=== PATIENT | female | born 1970 | race Caucasian/White ===

== ENCOUNTER 2017-12-19 15:16 | Outpatient (REF) | payer BC, SELFPAY ==
[2017-12-19 19:28] LABS: Bacteria Many HPF (Negative); Casts Negative LPF (Negative); Crystals Many Amorphous HPF (Negative); Epithelial Cells Many HPF (Negative); Mucus Negative (Negative); Other Cells Negative (Negative); RBC Negative (0-2); WBC Negative HPF (0-5)
[2017-12-19 19:29] LABS: C & S Indicated? C&S Done As Ordered
== END 2017-12-19 15:36 ==
LOC: NCHCN 15:16
PROVIDERS: PCP Internal Medicine; Visit Provider Physician Assistant Medical
DX: N39.0 Urinary tract infection, site not specified (principal)
CPT/HCPCS: 81015; 87086

== ENCOUNTER 2018-05-19 14:12 | Outpatient (CLI) | payer BC, SELFPAY ==
[2018-05-19 11:06] LABS: HCT 43.9 % (36.0-46.0); HGB 14.4 g/dL (12.0-15.5); Mean Corp. HGB Concentration 32.8 g/dL (32.0-36.0); Mean Corpuscular Hemoglobin 27.7 pg (27.0-33.0); Mean Corpuscular Volume 84.4 fL (80-95); Mean Platelet Volume 9.3 fL (8.0-11.0); Platelet Count 324 x1000/uL (130-400); RBC Distribution Width 13.3 % (11.7-14.6)
[2018-05-19 11:46] LABS: HCG Qual (Serum) Negative
[2018-05-19 11:55] LABS: ALT 36 U/L (12-78); AST 17 U/L (15-37); Albumin 3.6 g/dL (3.4-5.0); Alkaline Phosphatase 52 U/L (46-116); Anion Gap 9.3 mmol/L (3-11); BUN 12 mg/dL (7-18); Bilirubin, Total 0.3 mg/dL (0.2-1.0); CO2 27.7 mmol/L (21.0-32.0); CREATININE 0.69 mg/dL (0.55-1.02); Calcium 9.2 mg/dL (8.5-10.1); Chloride 99 mmol/L (98-107); Glucose 225 mg/dL (70-100); Potassium 4.2 mmol/L (3.5-5.1); Sodium 136 mmol/L (136-145); Total Protein 7.6 g/dL (6.4-8.2)
== END 2018-05-19 14:32 ==
PROVIDERS: PCP Internal Medicine; Visit Provider Obstetrics & Gynecology Gynecology
DX: N92.0 Excessive and frequent menstruation with regular cycle (principal); N94.6 Dysmenorrhea, unspecified; Z01.818 Encounter for other preprocedural examination
CPT/HCPCS: 36415; 80053; 85027; 86850; 86900; 86901; 84703

== ENCOUNTER 2018-05-20 11:51 | Observation (INO) | payer BC, SELFPAY ==
[2018-05-19 10:09] VITALS: BP 143/81; PULSE 90; RESP 18; TEMP 37.2; O2SAT 98
[2018-05-20] VITALS (14 sets, daily range): BP systolic 101–140; BP diastolic 32–79; PULSE 75–105; RESP 12–22; TEMP 36.1–37; O2SAT 93–98
[2018-05-20] MEDS: Lactated Ringers 1,000 ML 125 ML IV ×5 (08:25→23:52)
--- NOTE | 2018-05-20 10:20 | UTER_PTH ---
PATIENT: Charla Pastrana LOC: OBS U#:[id number] AGE/SX: 47/F ROOM: OBS.305 RE05/20/[address]: Hellen Torres : 1970 BED: A DIS: 05/21/2018 SPEC #: [id number] RECD: 05/20/18 12:46 STATUS: SALVATORE REQ #: [id number] PACO: 05/20/18 10:[address]: Hellen Torres DEPT: Surgical Specimen RECD BY: Rosi Linn ENTERED: 05/20/18 12:47 SP TYPE: UTER OTHR DR: David Preciado Tissues: 1 - UTERUS W OR W/O OVARIES(NOT TUMOR/PROLAPSE) 2 - FALLOPIAN TUBE (OTHER) 3 - FALLOPIAN TUBE (OTHER) Procedures: GROSS AND MICRO LEVEL 5 Comments: [id number]
--- NOTE | 2018-05-20 16:42 | ROE_ITS ---
Date of service: 05/20/18 Time of Service: 16:39 Operative Note DATE OF PROCEDURE: 05/20/18 PRE-OP DIAGNOSIS: Abnormal uterine bleeding POST-OP DIAGNOSIS: same PROCEDURE: Vaginal hysterectomy with bilateral salpingectomy and bladder cystoscopy SURGEON: Hellen Torres ASSISTING SURGEON: Solange Brooks ANESTHESIA: RAH ESTIMATED BLOOD LOSS: 300 PATHOLOGY: other (Uterus cervix and bilateral fallopian tubes) COMPLICATIONS: None Patient was transported to: PACU Patient's condition: stable Indications: Abnormal uterine bleeding not responsive to endometrial ablation or hormonal therapy. Patient has decided to have definitive treatment in the form of a vaginal hysterectomy with risk reducing bilateral salpingectomy. Findings: Cervix, uterus and fallopian tubes normal. Normal ovaries bilaterally. Procedure Description: Patient was taken to the OR and placed in the dorsal supine position and general endotracheal anesthesia was administered without difficulty. She was then placed in the dorsal lithotomy position in yellowfin stirrups, prepped and draped in the usual sterile fashion. Cabrera catheter was placed to gravity drainage remains in place for the entire case. A weighted speculum was placed into the vagina and cervix grasped with a single-tooth tenaculum and the body of the cervix infiltrated with 1% lidocaine with epinephrine in a circumferential fashion. Bovie was used to incise the epithelium of the cervix circumferentially allowing access to the posterior cul-de-sac which was then entered sharply and through the incision a long billed weighted speculum was placed. Curved Martha clamp was placed on the left uterosacral ligament and the ligament cut, and the ends sutured ligated with 0 Vicryl and the suture held long. A similar technique was carried out on the contralateral uterosacral ligament. This allowed sufficient mobilization of the uterus so that we were able to dissect the bladder off of the pubovesical cervical fascia anteriorly with a moistened laparotomy sponge and enter the anterior cul-de-sac sharply. And place a Montgomery retractor into the incision to retract the bladder away from the operative field. The uterine arteries and the broad ligament were then serially clamped with Martha clamps transected and suture ligated bilaterally both cornua were clamped with Martha clamps transected and the uterus was delivered. The cornua pedicles were ligated with a free tie followed by a suture ligature of 0 Vicryl with excellent hemostasis noted. After careful inspection of the uterosacral and cornual pedicles the right fallopian tube was identified followed to its proximal and close to the right ovary clamped transected and the pedicle suture ligated. A similar technique was carried out on the contralateral fallopian tube. Once again both pedicles were noted be hemostatic. Suture of 0 Vicryl was placed through the posterior vaginal cuff and then the medial surface of the right uterosacral ligament then relieved along peritoneum overlying the anterior surface of the rectum and then again to the left uterosacral ligament and exiting the posterior vaginal cuff. The suture was held long. After final inspection of pedicles which were noted to be noted to be hemostatic the vaginal cuff was reapproximated with a series of interrupted sutures of 0 Vicryl in a vertical placed in a vertical fashion. Once the cuff was reapproximated the 0 Vicryl suture of the posterior vaginal wall was tied and the posterior vaginal cuff was elevated to the vagina. The vaginal cuff was inspected and noted to be hemostatic. Bladder cystoscopy was performed using a 70 degree cystoscope both tubal ostia were visualized and noted to have brisk reflux of clear urine. The wall of the bladder was intact and normal in appearance. Cabrera catheter was reinserted to gravity drainage instruments removed from the patient's vagina which was placed in the dorsal supine position awakened extubated and transferred to recovery in stable condition all sponge lap needle counts correct x2 she received 2 g of Ancef prior to surgery. SCDs were placed throughout the entire case.
[2018-05-20] MEDS: Ketorolac 30 MG/ML VIAL IVP ×2 (18:03→23:51)
[2018-05-20] MEDS: Docusate Sodium 100 MG CAP PO (20:01)
[2018-05-20] MEDS: Acetaminophen 325 MG TAB 650 MG PO (21:55)
[2018-05-21 00:04] VITALS: BP 124/71; PULSE 96; RESP 18; TEMP 36.9; O2SAT 96
[2018-05-21 04:14] VITALS: BP 112/58; PULSE 94; RESP 20; TEMP 36.9; O2SAT 95
[2018-05-21] MEDS: Acetaminophen 325 MG TAB 650 MG PO ×2 (04:35→10:05)
[2018-05-21] MEDS: Ketorolac 30 MG/ML VIAL IVP (06:30)
[2018-05-21] MEDS: Docusate Sodium 100 MG CAP PO (07:39)
[2018-05-21 07:40] VITALS: BP 118/73; PULSE 83; RESP 20; TEMP 36.7; O2SAT 95
[2018-05-21 07:53] LABS: HCT 37.4 % (36.0-46.0); HGB 12.2 g/dL (12.0-15.5); Mean Corp. HGB Concentration 32.6 g/dL (32.0-36.0); Mean Platelet Volume 9.5 fL (8.0-11.0); Platelet Count 300 x1000/uL (130-400); RBC 4.35 m/cumm (4.00-5.20); RBC Distribution Width 13.4 % (11.7-14.6); White Blood Cell Count 12.14 k/cumm (4.4-10.8)
--- NOTE | 2018-05-21 07:59 | DSE_ITS ---
Date of service: 05/21/18 Time of Service: 07:44 DS: Diagnosis Discharge Diagnosis (1) Menorrhagia: Status: Resolved Asessment and Plan: History of abnormal uterine bleeding not responsive to medical therapy or endometrial ablation. (2) S/P vaginal hysterectomy: Start date: 05/20/18 Status: Acute Asessment and Plan: With bilateral risk reduction salpingectomy. Discharge Plan Disposition Patient Disposition: HOME Condition: Fair Discharge Details Admit Date/Time: 05/20/18 11:51 Admit Provider: Hellen Torres Attending Provider: Hellen Torres Primary Care Provider: [facility] Course Hospital Course: Patient was admitted the morning of the surgery and underwent the above-stated procedure approximate blood loss 300 cc. Findings at the time of surgery normal uterus and bilateral adnexa postop course was uncomplicated she was discharged home on postop day #1 with nonsteroidal anti-inflammatories and Tylenol for pain control. She is able to ambulate without difficulty and void after Cabrera catheter was removed. Home Meds and New Rx's Prescriptions: No Action oxycodone 5 mg tablet 5 mg PO DAILY MDD 4 PRN (Reason: pain) Qty: 5 RF: 0 lisinopril 10 MG tablet 10 mg PO DAILY RF: 0 norethindrone acetate 5 mg tablet 5 mg PO BID Qty: 60 RF: 1 diphenhydramine HCl 25 mg Tablet 25 mg PO DAILY RF: 0 ibuprofen 600 mg Tablet 600 mg PO PRN PRNRF: 0 Discharge Instructions Stand Alone Forms: DSU Post Gynecology Surgery Activity:: Activity as Tolerated Equipment/Supplies:: No Equipment Needed Diet:: As Tolerated Discharge Orders Discharge Orders: Discharge Order (Routine); Ordered 05/21/18 Ordered By: Hellen Torres Exam Narrative Exam Narrative: Unremarkable evening POD 0. She was ambulatory to the toilet and around the unit after her Cabrera catheter was removed. Nonsteroidal anti-inflammatories and acetaminophen were requested by patient and resulted in satisfactory pain control. Patient requested a prescription for narcotic she home in the event of increased postop pain shortly after arriving home. At the time of discharge she was passing flatus and had not had a bowel movement. Appetite was decreased w/o complaints of nausea or vomiting. Const General: comfortable and no acute distress Nutritional Appearance: overweight Orientation: alert, awake and oriented x3 Resp Effort & Inspection: normal respiratory effort and able to speak in complete sentences Auscultation: clear to auscultation bilaterally Cardio Rate: regular rate Heart Sounds: S1 normal and S2 normal GI Inspection: normal to inspection Palpation: soft and no hepatosplenomegaly General: deferred Skin General skin exam: no rashes or lesions noted Extrem General: normal to inspection, full ROM and normal capillary refill DS: Data Vitals/I&O Vitals and I&O: Vital Signs Temperature 98.4 F 05/21/18 04:14 Temperature Source Oral 05/21/18 04:14 Pulse 94 H 05/21/18 04:14 Pulse Rhythm Regular 05/20/18 19:25 Respiratory Rate 20 05/21/18 04:14 Respiratory Effort Non-Labored 05/20/18 19:25 Respiratory Depth Normal 05/20/18 19:25 Respiratory Pattern Normal 05/20/18 19:25 Blood Pressure 112/58 L 05/21/18 04:14 Pulse Oximetry 95 05/21/18 04:14 Respiratory End-tidal CO2 35 05/20/18 12:50 Oxygen Delivery Method Room Air 05/21/18 04:14 Oxygen Flow Rate 0 05/21/18 04:14 Pain Level 1 05/21/18 06:30 Intake & Output 05/20/18 05/20/18 05/21/18 11:59 23:59 11:59 Intake Total 1716.667 / 3050.000 1333.333 / 3050.000 1400 / 1400 Output Total 325 / 2225 1500 / 2225 750 / 750 Balance 1391.667 / 825.000 -166.667 / 825.000 650 / 650 Weight 236 lb 15.951 oz Intake: IV 1716.667 / 3050.000 1333.333 / 3050.000 1000 / 1000 Oral 400 / 400 Output: Urine 25 / 1925 1500 / 1925 750 / 750 Estimated Blood Loss 300 / 300 Other: Urine Color Dark Luci Yellow Yellow Urine Appearance Cloudy Clear Clear Urine Odor None None Comment Vaginal blood present in urine. Emesis Description None None Voiding Methods Toilet Toilet Labs on day of discharge: Labs from last 24 hours 05/21/18 05:35 WBC Pending RBC Pending Hgb Pending Hct Pending MCV Pending MCH Pending MCHC Pending RDW Pending Plt Count Pending MPV Pending PFSH Medical History Elevated glucose (Chronic) Menorrhagia (Resolved 10/12/15) Irregular menses (Resolved 10/12/15) Abnormal uterine bleeding (AUB) (Acute) Surgical History S/P vaginal hysterectomy (Acute) H/O parathyroidectomy (Acute) S/P excision of lipoma (Acute) Family History Father Esophageal cancer Social History household members: spouse marital status: M-Ismael, real estate sales supervisor number of children: 2 current occupation: fire fighters dispatcher Smoking and Tabacco status: Never additional social history: Children: Agusto Clarke Female Reproductive History Menstrual Duration of menses: >10 days History History 2 Para Hx # Term Pregnancies Multiple births Hx # Pregnancies Ectopic pregnancies AB induced Hx Number of Living Children AB spontaneous
[2018-05-21] MEDS: Ibuprofen 600 MG TAB PO (10:04)
== END 2018-05-21 10:15 | disposition home or self-care (01) ==
LOC: OBS 05-21 07:51
PROVIDERS: Admitting Provider Obstetrics & Gynecology Gynecology; PCP Internal Medicine; Visit Provider Obstetrics & Gynecology Gynecology
PROC: 0UT97ZZ Resection of Uterus, Via Natural or Artificial Opening (ICD-10-PCS; CPT 58260; principal; 2018-05-20 07:30)
DX: N92.1 Excessive and frequent menstruation with irregular cycle (principal); Z90.710 Acquired absence of both cervix and uterus; D25.0 Submucous leiomyoma of uterus; D25.2 Subserosal leiomyoma of uterus; N87.9 Dysplasia of cervix uteri, unspecified; N72 Inflammatory disease of cervix uteri; I10 Essential (primary) hypertension; K21.9 Gastro-esophageal reflux disease without esophagitis; E03.9 Hypothyroidism, unspecified
CPT/HCPCS: 58262; 52000; 36415; 85027; 99238; 88307; J0690; J1100; J1885; J2250; J2405; J3010

== ENCOUNTER 2020-05-11 17:58 | Outpatient (REF) | payer BC, SELFPAY | END 2020-05-11 17:59 | disposition home or self-care (01) | LOC: LBN 17:58 | PROVIDERS: PCP Internal Medicine; Visit Provider Advanced Practice Midwife | DX: L29.2 Pruritus vulvae (principal); R30.0 Dysuria | CPT/HCPCS: 87086; 87480; 87510; 87660 ==

== ENCOUNTER 2021-08-02 18:21 | Outpatient (REF) | payer BC, SELFPAY ==
[2021-08-02 18:15] LABS: Chloride 105 mmol/L (98-107); Potassium 4.3 mmol/L (3.5-5.1); Sodium 141 mmol/L (136-145)
[2021-08-02 18:32] LABS: COMMENT (LAB VIEW ONLY) 103.66 mg/dL; Microalb ug/mg Crea 9.3 ug/mg Cr
[2021-08-02 18:40] LABS: ALT 33 U/L (14-59); AST 14 U/L (15-37); Albumin 3.6 g/dL (3.4-5.0); Alkaline Phosphatase 71 U/L (46-116); BUN 14 mg/dL (7-18); Bilirubin, Total 0.3 mg/dL (0.2-1.0); CREATININE 0.7 mg/dL (0.55-1.02); Calcium 8.3 mg/dL (8.5-10.1); Calculated LDL 123 mg/dL (<100); Cholesterol 171 mg/dL (<200); Glucose 158 mg/dL (74-106); HDL Cholesterol 30 mg/dL (40-60); TSH (W/Ref FT4) 1.52 uIU/mL (0.36-3.74); Total Protein 6.8 g/dL (6.4-8.2); Triglyceride 91 mg/dL (<150)
== END 2021-08-02 18:22 | disposition home or self-care (01) ==
LOC: NCHCN 18:21
PROVIDERS: PCP Internal Medicine; Visit Provider Physician Assistant
DX: E11.9 Type 2 diabetes mellitus without complications (principal); I10 Essential (primary) hypertension
CPT/HCPCS: 80053; 80061; 82043; 82570; 84443

== ENCOUNTER → 2021-08-22 01:58 | Outpatient (CLI) | payer BC, SELFPAY ==
--- NOTE | 2021-08-22 17:40 | DI.MAMMO_ITS ---
Exam(s) MAMMO SCREENING EXAM: MAMMO SCREENING CLINICAL HISTORY: SCREENING, Z12.39. TECHNIQUE: Bilateral full field digital CC and MLO mammographic images were obtained with 3D tomosyn thesis and utilizing computer aided detection (CAD). COMPARISON: Prior mammogram of October 2015 was reviewed. FINDINGS: There has been no significant change in the appearance and distribution of the fibroglandular tissue which is mostly fatty. There are no CAD designations. There are no new spiculated masses nor malignant appearing microcalcification groups. There is no significant architectural distortion nor skin thickening-retraction. IMPRESSION: No radiographic evidence of malignancy. BI-RADS Category 1 - Negative Breast Density - Category A - Almost entirely fatty Breast density Category C or D implies that the patient has dense breast tissue. Dense breast tissue can make it harder to find cancer on a mammogram. Dense breast tissue is also associated with an incr eased risk of breast cancer. This information about the result of the mammogram report was provided to the patient to raise their awareness. Use this report when you speak with the patient about their risks for breast cancer, which includes their family history. At that time, you may recommend additional screening tests (Ultrasoun d or MRI) as these tests may add significant information. A negative radiographic report should not delay biopsy if a dominant or clinically suspicious mass is present. Up to ten percent of cancers are not identified on mammography. A negative report may reinforce clinical impression. Adenosis and dense breasts may obscure an underlying neoplasm. False positive reports average 6 to 10%. Patient will receive a letter notifying them of these results.
== END ==
PROVIDERS: PCP Internal Medicine; Visit Provider Physician Assistant
DX: Z12.31 Encounter for screening mammogram for malignant neoplasm of breast (principal)
CPT/HCPCS: 77063; 77067

== ENCOUNTER 2024-12-21 01:14 | Outpatient (CLI) | payer BC, SELFPAY ==
--- NOTE | 2024-12-21 | DI.MAMMO_ITS ---
Exam(s) MAMMO SCREENING EXAM: MAMMO SCREENING CLINICAL HISTORY: SCREENING MAMMO Z12.31. TECHNIQUE: Bilateral full field digital CC and MLO mammographic images were obtained with 3D tomosynthesis and utilizing computer aided detection (CAD). COMPARISON: Prior mammograms were reviewed. FINDINGS: There has been no significant change in the appearance and distribution of the fibroglandular tissue. There are no CAD designations. There are no new spiculated masses nor malignant appearing microcalcification groups. There is no significant architectural distortion nor skin thickening-retraction. IMPRESSION: No radiographic evidence of malignancy. BI-RADS Category 1 - Negative Breast Density - Category A - The breast are almost entirely fatty. Breast density Category C or D implies that the patient has dense breast tissue. Dense breast tissue can make it harder to find cancer on a mammogram. Dense breast tissue is also associated with an increased risk of breast cancer. This information about the result of the mammogram report was provided to the patient to raise their awareness. Use this report when you speak with the patient about their risks for breast cancer, which includes their family history. At that time, you may recommend additional screening tests (Ultrasound or MRI) as these tests may add significant information. A negative radiographic report should not delay biopsy if a dominant or clinically suspicious mass is present. Up to ten percent of cancers are not identified on mammography. A negative report may reinforce clinical impression. Adenosis and dense breasts may obscure an underlying neoplasm. False positive reports average 6 to 10%. Patient will receive a letter notifying them of these results.
== END 2024-12-21 01:34 ==
LOC: DI 01:14
PROVIDERS: PCP Internal Medicine; Visit Provider Physician Assistant
DX: Z12.31 Encounter for screening mammogram for malignant neoplasm of breast (principal); R92.323 Mammographic fibroglandular density, bilateral breasts
CPT/HCPCS: 77063; 77067